=== PATIENT | female | born 1955 | race Caucasian/White ===

== ENCOUNTER → 2020-03-10 | Outpatient (CLI) | payer MEDICARE ==
[~2020-03-10] MED LIST: ALLERGY10 M2 PO; CLARITIN5 MG PO; FOLBIC RF TABL1 EACH PO; HYDROCODON-ACE1 EA14 PO; LISINOPRIL10 MG PO; MIRAPEX0.125 MG PO; NORTRIPTYLINE H10 M2 PO; PROBIOTIC1 EAC1 PO; SERTRALINE HCL100 MG PO
== END ==
LOC: M.RAD 03-06 13:05
PROVIDERS: ATTEND Family Medicine
DX: Z12.31 Encounter for screening mammogram for malignant neoplasm of breast (principal); M85.88 Other specified disorders of bone density and structure, other site; Z78.0 Asymptomatic menopausal state